=== PATIENT | male | born 1960 | race Caucasian/White ===

== ENCOUNTER 2023-09-07 01:43 | Day surgery (SDC) | payer OTHER, SELFPAY ==
[2023-08-23 14:57] VITALS: BMI 29.0
[2023-09-07 06:53] VITALS: BP 144/80; PULSE 64; RESP 18; TEMP 36.1; O2SAT 99
[2023-09-07] MEDS: LACTATED RINGERS 1,000 ML 150 ML IV CONT (07:02)
--- NOTE | 2023-09-07 07:48 | PM.HPGS ---
History of Present Illness History of Present Illness Consent: Risks, benefits, and alternatives have been discussed and questions answered. Patient agrees to proceed with procedure. Chief complaint: hx colon polyps Narrative: Jay Jay Jackson is a 63 year old male with colon polyp 5 years ago Review of Systems Review of Systems: All systems reviewed & are unremarkable except as noted in HPI and below PMFSH Past Medical History Medical History (Updated 09/07/23 @ 07:52 by Altaf Landers MD) Colon polyp Family History Family History (Updated 09/27/15 @ 11:40 by DOCTOR UNKNOWN) Father Hypertension Family history of heart disease in male family member before age 55 Grandparent Cerebrovascular accident Family history of emphysema Mother Cerebrovascular accident Other Family history of arthritis Family history of chronic obstructive pulmonary disease Family history of mental disorder Social History Social History Smoking packs per day: 1 Smoking cigarettes per day: 20.0 Years smoked: 20 Smoking pack-years: 20.00 Smoking status: Former smoker Tobacco type: cigarettes Alcohol intake: current Drinks per week: 12 Alcohol use details: BEERS Substance use: never Substance use type: does not use Living arrangements: with family Spiritual care concerns: No Meds Home Medications and Allergies Home Medications Medication Instructions Recorded Confirmed Type Jessika-Coline 600 mg PO DAILY 08/23/23 08/23/23 History amlodipine 10 mg tablet 10 mg PO DAILY 08/23/23 08/23/23 History atorvastatin 40 mg tablet 40 mg PO DAILY 08/23/23 08/23/23 History etanercept 50 mg/mL (1 mL) 50 mg subcut WEEKLY 08/23/23 08/23/23 History subcutaneous syringe (Enbrel) lisinopril 40 mg tablet 40 mg PO DAILY 08/23/23 08/23/23 History multivit with minerals-iron 18 1 tablet PO DAILY 08/23/23 08/23/23 History mg-folic ac 400 mcg-vit K 25 mcg tablet (Adults Multivitamin) sildenafil 100 mg tablet 100 mg PO DIRECTED PRN Sexual 08/23/23 08/23/23 History Activity Allergies Allergy/AdvReac Type Severity Reaction Status Date / Time No Known Allergies Allergy Unknown Verified 09/07/23 06:52 Vital Signs Vital Signs - 24 hr 09/07/23 06:53 Temperature 97 F L Pulse Rate 64 Respiratory Rate 18 Blood Pressure 144/80 H Pulse Oximetry 99 Oxygen Delivery Room Air Exam Const: General: comfortable and no acute distress HENMT: Face/Nose/Sinus: Normal nares present Eyes: General: appearance normal, both eyes and all related structures Neck: Neck: no JVD Resp: Auscultation: clear to auscultation bilaterally Cardio: Rate: regular rate Rhythm: regular rhythm GI: Inspection: non-distended GI Palp: Yes Soft to palpation Skin: General skin exam: normal color Neuro: General: gait normal Speech: normal speech Extrem: General: normal to inspection Psych: Mental Status: mental status grossly normal Assessment and Plan Assessment and plan (1) Colon polyp: Code(s): K63.5 - Polyp of colon Status: Acute Assessment and Plan: colonoscopy
--- NOTE | 2023-09-07 07:53 | WPDANESEPPF ---
Anes - Initial Pre Proc Eval Procedure: Operation Date: 09/07/23 08:00 Proposed Procedures p Screening Colonoscopy - Altaf Landers MD Date/Time: 09/07/23 07:53 Surgeon: Altaf Landers MD Pre Op Diagnosis: hx colon polyps Patient Data Age: 63 Gender: M Height: 1.83 m Weight: 92.9 kg Last Vital Signs Temp 97 F L 09/07/23 06:53 Pulse 64 09/07/23 06:53 Resp 18 09/07/23 06:53 BP 144/80 H 09/07/23 06:53 Pulse Ox 99 09/07/23 06:53 O2 Del Method Room Air 09/07/23 06:53 Allergies Allergy/AdvReac Type Severity Reaction Status Date / Time No Known Allergies Allergy Unknown Verified 09/07/23 06:52 Home Medications Medication Instructions Recorded Confirmed Type Jessika-Coline 600 mg PO DAILY 08/23/23 08/23/23 History amlodipine 10 mg tablet 10 mg PO DAILY 08/23/23 08/23/23 History atorvastatin 40 mg tablet 40 mg PO DAILY 08/23/23 08/23/23 History etanercept 50 mg/mL (1 mL) 50 mg subcut WEEKLY 08/23/23 08/23/23 History subcutaneous syringe (Enbrel) lisinopril 40 mg tablet 40 mg PO DAILY 08/23/23 08/23/23 History multivit with minerals-iron 18 1 tablet PO DAILY 08/23/23 08/23/23 History mg-folic ac 400 mcg-vit K 25 mcg tablet (Adults Multivitamin) sildenafil 100 mg tablet 100 mg PO DIRECTED PRN Sexual 08/23/23 08/23/23 History Activity Patient hx anesthesia problems: none Family hx anesthesia problems: none Results Review: All pre-operative results and documents have been reviewed as part of the pre-operative evaluation. [facility] Past Medical History Medical History (Updated 09/07/23 @ 07:52 by Altaf Landers MD) Colon polyp Family History Family History (Updated 09/27/15 @ 11:40 by DOCTOR UNKNOWN) Father Hypertension Family history of heart disease in male family member before age 55 Grandparent Cerebrovascular accident Family history of emphysema Mother Cerebrovascular accident Other Family history of arthritis Family history of chronic obstructive pulmonary disease Family history of mental disorder Social History Social History Smoking packs per day: 1 Smoking cigarettes per day: 20.0 Years smoked: 20 Smoking pack-years: 20.00 Smoking status: Former smoker Tobacco type: cigarettes Alcohol intake: current Drinks per week: 12 Alcohol use details: BEERS Substance use: never Substance use type: does not use Living arrangements: with family Spiritual care concerns: No Anes - Eval Final PreProcedure Day of Procedure 09/07/23 07:53 Patient weight: normal Heart: regular rate and rhythm Lungs: clear to auscultation Airway: Mallampati scale class II Neurological: alert and oriented Last oral intake: >/= 8 hours ASA classification: III Emergent: no Anesthetic plan: proceed Anesthesia type and monitoring: general GIVS and standard monitoring Results Review: All pre-operative results and documents have been reviewed as part of the pre-operative evaluation. Informed Consent: The patient's anesthetic plan and its attendant risks and benefits were discussed with the patient/family/POA. Questions were solicited and answers provided to the satisfaction of the patient/family/POA.
[2023-09-07 08:14] VITALS: BP 101/61; PULSE 50; RESP 18; O2SAT 98
[2023-09-07 08:24] VITALS: BP 103/62; PULSE 57; RESP 18; O2SAT 96
[2023-09-07 08:31] VITALS: BP 130/80; PULSE 50; RESP 18; O2SAT 100
== END 2023-09-07 08:50 | disposition home or self-care (01) ==
PROVIDERS: PCP Family Medicine; Visit Provider Internal Medicine Gastroenterology
PROC: 0DJD8ZZ Inspection of Lower Intestinal Tract, Via Natural or Artificial Opening Endoscopic (ICD-10-PCS; CPT 45378; principal; 2023-09-07 08:00)
DX: Z12.11 Encounter for screening for malignant neoplasm of colon (principal); D12.0 Benign neoplasm of cecum; D12.2 Benign neoplasm of ascending colon; K57.30 Diverticulosis of large intestine without perforation or abscess without bleeding; K64.8 Other hemorrhoids; Z79.620 Long term (current) use of immunosuppressive biologic; Z87.891 Personal history of nicotine dependence
CPT/HCPCS: 45385; 88305; J2704; J7120

== ENCOUNTER 2025-02-26 07:22 | Outpatient (CLI) | payer OTHER, SELFPAY ==
--- NOTE | ~2025-02-26 | PE_ITS ---
EXAMINATION: PET_PETPSMAST_PT DATE: 02/26/2025 10:44 INDICATION: Prostate cancer TECHNIQUE: 5.794 mCi of Illucix [id number]) was administered i.v. Low dose computed tomography (CT) images were acquired from the base of the brain to the base of the brain to the proximal thighs for attenuation correction and anatomic localization. Positron emission tomography (PET) images were acquired in the same distribution beginning 75 minutes after injection. Images including fused PET/CT images were reconstructed in axial, coronal, and sagittal planes. Automated exposure control technique was employed. The dose-length product was 1160.41mGy-cm. COMPARISON: None FINDINGS: Head/neck: Typical pattern of symmetric physiologic increased activity in the lacrimal, parotid and submandibular glands as well as along the mucosa of the nasal and oral cavities, pharynx and hypopharynx. No pathologically enlarged cervical lymphadenopathy or suspicious foci of increased uptake in the visualized head or neck. Prominent atherosclerotic calcifications at the bilateral carotid bulbs. Chest: Calcified nodules in the right lower lobe and calcified right hilar and mediastinal lymph nodes consistent with old granulomatous disease. No other suspicious pulmonary nodules, pneumonia, pulmonary edema or other pulmonary infiltrates. No pleural effusion. Heart size is normal. Atherosclerotic coronary artery calcifications unchanged prior median sternotomy and coronary artery bypass grafting. No pathologically enlarged or PSMA avid thoracic lymphadenopathy. Abdomen/pelvis/proximal thighs: Physiologic renal accumulation and excretion of activity in the kidneys, bladder and along portions of ureters. Prostatomegaly measuring 5.3 x 3.8 cm. Moderate- sized region of prominent increased uptake at the left side of the prostate with maximal SUV of 17.7 consistent with primary prostate cancer. Normal degree and slightly heterogenous pattern of increased uptake throughout the liver and spleen without radiologic correlate or dominant PSMA avid lesion. Multiple splenic calcifications and a few tiny hepatic calcifications consistent with old granulomatous disease. The gallbladder, pancreas and bilateral adrenal glands are normal. Moderate uptake scattered throughout the bowels with typical duode nal and proximal jejunal predominance and without radiologic correlate, also likely physiologic. Normal appendix. No other abnormal foci of increased uptake or pathologically enlarged lymphadenopathy in the abdomen, pelvis or proximal thighs. Musculoskeletal: A couple densely sclerotic likely bone islands at the right acetabulum and left sacral ala which remain without abnormal PSMA activity. There are 3 subcentimeter foci of mild increased bone activity, the most intense at the anterior left first rib with maximal SUV of 3.5, a second at the posterior left first rib with maximal SUV of 2.7 and finally a subtle lesion at the left lateral mass of C5 with maximal SUV of 1.9. All are without evident corresponding lytic or blastic bone lesion CT images. IMPRESSION: 1. Prostatomegaly with moderate-sized region of prominent increased activity at the left side of the prostate consistent with primary prostate cancer. 2. 3 small foci of mild increased bone activity at the anterior and posterior left first rib and at the left lateral masses of C5 which are all without Hologic correlate on CT, equivocal for early osseous metastatic disease. 2. No other suspicious PSMA avid lesions or enlarged lymphadenopathy to suggest metastatic disease in the neck, chest, abdomen or pelvis. Reviewed, dictated and finalized at location A. IMPRESSION: 1. Prostatomegaly with moderate-sized region of prominent increased activity at the left side of the prostate consistent with primary prostate cancer. 2. 3 small foci of mild increased bone activity at the anterior and posterior l eft first rib and at the left lateral masses of C5 which are all without Hologi c correlate on CT, equivocal for early osseous metastatic disease. 2. No other suspicious PSMA avid lesions or enlarged lymphadenopathy to suggest metastatic disease in the neck, chest, abdomen or pelvis.
--- OUTSIDE RECORDS SUMMARY | 2025-02-26 07:25 | XMS_ITS | Clinical Summary ---
Author Organization [address] Address [address] [place] [address] Care Team Providers Care First Assistant Name Role Phone Jose Herrera MD Primary Care Provider [phone] Allergies No known active allergies Medications etanercept (ENBREL) 50 mg/mL (0.98 mL) injection inject 1 milliliter by subcutaneous route every week 0 Syringe 0 6 Active metroNIDAZOLE (NORITRATE) 1 % cream Apply topically daily Active aspirin 81 mg enteric coated tablet Take 1 tablet (81 mg total) by mouth daily Active sildenafiL (VIAGRA) 100 mg tablet TAKE 1 TABLET BY MOUTH 1/2 TO 1 HOUR PRIOR TO INTERCOURSE NEEDED FOR ERECTILE DYSFUNCTION( MAY NOT USE WITH NITROGLYCERIN) 4 tablet 11 3 Active amLODIPine (NORVASC) 10 mg tablet TAKE 1 TABLET(10 MG) BY MOUTH DAILY 90 tablet 4 5 Active atorvastatin (LIPITOR) 40 mg tabletIndication s:Coronary artery disease involving mechoopda coronary artery of mechoopda heart without angina pectoris TAKE 1 TABLET(40 MG) BY MOUTH DAILY 90 tablet 3 5 Active lisinopriL (PRINIVIL,ZESTRI L) 40 mg tabletIndication s:Benign hypertension TAKE 1 TABLET(40 MG) BY MOUTH DAILY 90 tablet 3 5 Active Active Problems Problem Noted Date Diagnosed Date Bilateral impacted cerumen 10/26/2024 Assessment & Plan (10/26/2024 2:58 PM CDT): Canals cleared. RTC for any recurrent concerns. Prostate cancer screening 04/27/2024 Assessment & Plan (04/27/2024 3:19 PM RESEARCH TECH): PSA with next set of labs. Annual physical exam 10/21/2023 Assessment & Plan (10/26/2024 2:59 PM CDT): Visit preventive in nature. We reviewed medications, chronic conditions, risk factors, lifestyle recommendations. Reviewed immunization recommendations. Labs ordered. Follow-up in 6 months for chronic conditions and 1 year for annual wellness. Assessment & Plan (10/21/2023 2:49 PM CDT): In regard to health maintenance, Colonoscopy last month- polyps- repeat in 3 years PSA utd Shingrix vaccine declines Eat a healthy diet: focus on lean meats and proteins, more fruits, vegetables and whole grains and low in sugars and fats. Limit red meat and avoid processed meat. Maintain a healthy weight; avoid being overweight. Aim for a normal body mass index (BMI) of 18.5-24.9. Help learning to eat healthier, we can set up appointment with wildlife control agent/utility assembler. Have an active lifestyle, strive for 30 minutes of moderate exercise 5 times a week and strength or resistance training at least twice a week. Use broad-spectrum (UVA+UVB) sunscreen with SPF 30 or greater, is water resistant, limit time spent in the sun (10 am-4pm), wear hat, wear UV protective clothing, wear sunglasses. Never use a tanning bed. Skin that was irradiated may be more sensitive over your lifetime. Do not smoke or chew tobacco; participate in a smoking cessation program. Limit alcohol intake, 1 drink per day for a woman and 2 drinks per day for a man. History of colon polyps 06/29/2023 Assessment & Plan (10/21/2023 3:05 PM CDT): Continue following with GI specialist as directed. Assessment & Plan (06/29/2023 1:47 PM RESEARCH TECH): Referral placed to schedule colonoscopy. No significant sphincter laxity. Recommend tsp of Metamucil daily. Will have him follow-up with GI. Red flags reviewed. Other male erectile dysfunction 06/29/2023 Assessment & Plan (06/29/2023 1:48 PM RESEARCH TECH): Continue with sildenafil p.r.n.. Also [facility]. He is agreeable with plan and states understanding. Poison micki 11/20/2022 Assessment & Plan (11/20/2022 12:06 PM CDT): Rash is not wide spread or particularly bothersome. Instructed to avoid hot shower, scratching and recommended use of topical hydrocortisone cream. Follow up if no improvement in the next 2 weeks or sooner for any new or worsening symptoms. BMI 28.0-28.9,adult 11/20/2022 Assessment & Plan (10/26/2024 3:00 PM CDT): Weight is stable. Assessment & Plan (06/29/2023 1:46 PM RESEARCH TECH): Reviewed healthy diet. Assessment & Plan (11/20/2022 11:56 AM CDT): Discussed healthy diet and importance of regular physical activity. Physical exam, annual 11/20/2022 Assessment & Plan (11/20/2022 12:09 PM CDT): Preventive exam; reviewed recommended preventive screenings and vaccinations. Encourage annual flu vaccine. Wear sunscreen/protective clothing when outdoors. -up to date on screening c-scope Mixed hyperlipidemia 01/09/2022 Assessment & Plan (10/26/2024 3:00 PM CDT): Compliant with atorvastatin. Tolerating without side effects. Lipid panel ordered. Will plan accordingly once results are received. Assessment & Plan (04/27/2024 2:58 PM RESEARCH TECH): Labs look good. Continue taking atorvastatin. Red flags reviewed. Assessment & Plan (04/22/2023 4:07 PM RESEARCH TECH): Controlled. Tolerating statin without side effects. Will continue to monitor. Unresponsive episode 05/04/2017 Bradycardia 05/04/2017 Psoriasis 05/06/2016 Overview (08/28/2016): Psoriasis History of coronary artery bypass surgery 2015 Overview (08/28/2016): S/P CABG x 2 Coronary artery disease invo lving mechoopda coronary artery of mechoopda heart without angina pectoris 04/10/2016 Overview (08/28/2016): Coronary artery disease involving mechoopda coronary artery of mechoopda heart without angina pectoris Assessment & Plan (10/26/2024 2:59 PM CDT): No chest pain. Compliant with medication regimen. Continues following with Cardiology. Assessment & Plan (04/27/2024 3:18 PM RESEARCH TECH): Denies chest pain. Continue following with cardiology. Compliant with medication regimen. Red flags reviewed. Assessment & Plan (10/21/2023 3:05 PM CDT): Denies chest pain. Will continue with secondary prevention. Red flags reviewed. Assessment & Plan (04/22/2023 4:07 PM RESEARCH TECH): Denies chest pain. Blood pressure is above goal. Will uptitrate amlodipine to 10 mg daily. Will monitor response. Assessment & Plan (11/20/2022 12:04 PM CDT): Labs ordered. Continue secondary prevention, taking atorvastatin 40 mg daily and aspirin as prescribed. Following with Cardiology. Benign hypertension 01/14/2016 Overview (08/28/2016): HTN (hypertension), benign Assessment & Plan (10/26/2024 2:59 PM CDT): Well controlled on amlodipine, lisinopril. Will continue. Assessment & Plan (04/27/2024 2:57 PM RESEARCH TECH): Normotensive. Continue taking amlodipine and lisinopril. Red flags reviewed. Assessment & Plan (06/29/2023 1:46 PM RESEARCH TECH): Controlled on amlodipine, lisinopril. No changes. Will continue to monitor. Assessment & Plan (04/22/2023 4:08 PM RESEARCH TECH): Uncontrolled. Will uptitrate amlodipine to 10 mg daily. Encouraged to monitor blood pressure at home. Reviewed heart healthy diet and lifestyle recommendations. Will continue to monitor. Red flags reviewed. Assessment & Plan (11/20/2022 12:07 PM CDT): BP elevated, patient took BP medication about 1 hour ago. Instructed him to re- check BP in about 2 hours, if >130 instructed to take additional amlodipine. Continue periodically monitoring at home. Tobacco dependence in remission 01/14/2016 Overview (08/28/2016): Tobacco abuse, in remission Abnormal cardiovascular stress test 01/14/2016 Overview (08/28/2016): Abnormal stress ECG with treadmill Chest pain 01/14/2016 Overview (08/28/2016): Chest pain in adult Resolved Problems Problem Noted Date Diagnosed Date Resolved Date Hypertension 05/06/2016 06/18/2020 Overview (08/28/2016): Hypertension Chronic coronary artery disease 02/11/2016 01/09/2022 Dyslipidemia 01/14/2016 01/09/2022 Overview (08/28/2016): Dyslipidemia Encounters Date Type Department Care Team Description 12/08/2024 2:00 PM CDT Office Visit [facility] Card[facility] [address] [place] [address] Popeye Restrepo MD Coronary artery disease involving mechoopda coronary artery of mechoopda heart without angina pectoris (Primary Dx); Mixed hyperlipidemia; BMI 28.0-28.9,adult; Benign hypertension; Tobacco dependence in remission from Last 3 Months Immunizations Immunization Administration Dates Next Due Influenza, Unspecified 04/27/2024(Deferr ed: Patient Refused),04/22/2023(Deferred: Patient Refused),08/21/2022(Deferred: Patient Refused),08/19/2021(Deferred: Patient Refused),02/21/2021(Deferred: Patient Refused),02/21/2021(Deferred: Patient Refused),02/22/2020(Deferred: Patient Refused),08/09/2018(Deferred: Patient Refused) Pfizer SARS-CoV-2 Monovalent Vaccination (12+ Yrs) PURPLE 08/13/2020,07/23/2020 Pneumococcal Conjugate Pcv20 10/26/2024(Deferred : Patient Refused) Surgical History Surgery Date Site/Laterality Comments OTHER SURGICAL HISTORY Double bypass CORONARY ARTERY BYPASS GRAFT 03/13/2016 CABG x2, [facility] Medical History Medical History Date Comments Hypertension Hypertension Coronary artery disease S/P CABG (coronary artery bypass graft) PAD (peripheral artery disease) Family History Medical History Relation Name Comments Hypertension Brother Hypertension; Heart failure Father Congestive hea rt failure; Hypertension Father Hypertension; Hypertension Mother Hypertension; Other Mother Alive and well; /High blood sugar; Stroke Mother Stroke; Relation Name Status Comments Brother Father (Age 66) Mother Alive Social History Tobacco Use Types Packs/Day Years Used Date Smoking Tobacco: Former Cigarettes Smokeless Tobacco: Never Tobacco Cessation:Counseling Given: Not Answered Alcohol Use Standard Drinks/Week Comments Yes 0 (1 standard drink = 0.6 oz pur e alcohol) AUDIT-C Answer Date Recorded Q1: How often do you have a drink containing alc ohol? 2-3 times a week 06/29/2023 Q2: How many drinks containi ng alcohol do you have on a typical day when you are drinking? 3 or 4 06/29/2023 Q3: How often do you have si x or more drinks on one occasion? Less than monthly 06/29/2023 PHQ-2 Answer Date Recorded PHQ-2 Total Score (If total score is 3 or more points, staff should administer the PHQ-9) 0 10/26/2024 Sex and Gender Information Value Date Recorded Sex Assigned at Not on file Legal Sex Male 4:09 AM RESEARCH TECH Gender Identity Not on file Sexual Orientation Not on file Obstetrics History Last Filed Vital Signs Vital Sign Reading Time Taken Comments Blood Pressure 122/72 12/08/2024 2:10 PM CDT Pulse 62 12/08/2024 2:10 PM CDT Temperature 36.7 C (98.1 F) 10/26/2024 2:16 PM CDT Respiratory Rate 20 10/26/2024 2:16 PM CDT Oxygen Saturation 96% 12/08/2024 2:10 PM CDT Inhaled Oxygen Concentration - - Weight 95.3 kg (210 lb) 12/08/2024 2:10 PM CDT Height 182.9 cm (6') 12/08/2024 2:10 PM CDT Body Mass Index 28.48 12/08/2024 2:10 PM CDT Plan of Treatment Health Maintenance Due Date Last Done Comments DTaP/Tdap/Td Vaccine (1 - Tdap) 1970 Pneumococcal vaccine 65+ (1 of 1 - PCV) 2009 Zoster Vaccine (1 of 2) 2009 Covid-19 Vaccine (3 - Pfizer risk series) 09/10/2020 08/13/2020, 07/23/2020 Abdominal Aortic Aneurysm (A AA) Screen 2024 Influenza Vaccine (#1) 2025 Depression Screening 10/26/2025 10/26/2024, 10/21/2023, 04/22/2023, Additional history exists Fall Risk Assessment 10/26/2025 10/26/2024, 07/04/2021, 08/09/2018 Well Visit 65+ 10/26/2025 10/26/2024, 09/23, 11/20/2022, Additional history exists Prostate Cancer Screening-PSA 11/03/2026, 10/19/2023, 07/25/2021, Additional history exists Colon Cancer Screening-Colonoscopy 09/06/2033 09/07/2023, 09/14/2018, 05/24/2009 Hepatitis C Screening Completed 07/25/2021 Colon Cancer Screening-CT Colonography Discontinued 09/07/2023, 09/14/2018, 05/24/2009 Colon Cancer Screening-DNA Stool Discontinued 09/07/2023, 09/14/2018, 05/24/2009 Colon Cancer Screening-FIT Discontinued 09/06, 09/14/2018, 05/24/2009 Colon Cancer Screening-Sigmoidoscopy Discontinued 09/07/2023, 09/14/2018, 05/24/2009 Hepatitis B Screening Completed 11/03/2024 Procedures Procedure Name Priority Date/Time Associated Diagnosis Comments PSA SCREEN Routine 11/03/2024 2:11 PM CDT Prostate cancer screening COLONOSCOPY REPORT Routine 09/07/2023 HEPATITIS C ANTIBODY Routine 07/25/2021 10:36 AM RESEARCH TECH from Last 3 Months or Most Recently Relevant to Health Maintenance Results * (ABNORMAL) PSA screen (11/03/2024 2:11 PM CDT) PSA-Total 6.28(H) <=5.40 ng/mL Comment: Interpretive Data AGE SEX REFERENCE INTERVAL 0 minutes-150 years Female None 0 minutes-49 years Male None 50-59 years Male 0-3.90 60-69 years Male 0-5.40 70-79 years Male 0-6.20 80-150 years Male 0-6.20 The Jennifer PSA Total assay procedure was used. Results from different manufacturers or methods may not be comparable. Serial testing should be performed using the same method. Current interpretive data last revised 21. Testing performed by: [facility], [address] [place] [address]., [id number] Blood 11/03/2024 2:11 PM CDT 11/03/2024 8:30 PM CDT us iLsa Rangel HIDE OR SKIN BUFFER LAB BLOOD ORDERABLES Final Result [facility]) [address] [facility] [place] [address] * Colonoscopy Report -[facility] (09/07/2023) Anatomical Region Laterality Modality Other Historical Provider GI PROCEDURE ORDERABLES F inal Result * Hepatitis C antibody (07/25/2021 10:36 AM RESEARCH TECH) Hep C Ab <0.1 0.0 - 0.9 s/co ratio [facility] - 01 Comment: Negative: < 0.8 Indeterminate: 0.8 - 0.9 Positive: > 0.9 The CDC recommends that a positive HCV antibody result be followed up with a HCV Nucleic Acid Amplification test ([id number]). 07/25/2021 10:3 6 AM RESEARCH TECH 07/25/2021 Narrative [facility] - 07/26/2021 8:11 AM RESEARCH TECH Performed at: 01 - [facility] [address] [id number] Matcher: Vishnu Christopher PhD, Phone: [phone] Lisa Rangel NP LAB MICROBIOLOGY - GENERAL ORDERABLES Final Result Performing Organization Address City/State/RUST Co de Phone Number [facility] - 01 from Last 3 Months or Most Recently Relevant to Health Maintenance Insurance [facility] [employer] [facility] [employer]/PPO Address: [facility] [address] [place] [address] [facility] [employer] [facility] [employer] Address: [facility] [id number] [place] [id number] Care Teams First Assistant Relationship Specialty Start Date End Date [place] [address] PCP - General Family Medicine 12/30/16
--- OUTSIDE RECORDS SUMMARY | 2025-02-26 07:25 | XMS_ITS | Clinical Summary ---
Author Organization [facility] Address [address] [place] [address] Phone Care Team Providers Care Book Solicitor Name Role Phone Nomfc, External Provider Primary Care Provider U navailable Allergies No known active allergies Medications aspirin (ECOTRIN EC) 81 mg Tablet, Delayed Release (E.C.) 12/23/2015 Active amLODIPine (NORVASC) 10 mg tablet 12/23/2015 Active TESTIM 50 mg/5 gram (1 %) Gel transdermal gel 01/15/2016 Act navdeep ENBREL 50 mg/mL (0.98 mL) Syringe 02/04/2016 A ctive hydroCHLOROthiazide 25 mg tablet 02/05/2016 Active lisinopril (PRINIVIL) 20 mg tablet 12/23/2015 Active atorvastatin (LIPITOR) 40 mg tablet 12/23/2015 Active VIAGRA 50 mg tablet 02/15/2016 Active Active Problems No known active problems Social History Tobacco Use Types Packs/Day Years Used Date Smoking Tobacco: Former Cigarettes Q uit: 01/22/2015 Smokeless Tobacco: Never Alcohol Use Standard Drinks/Week Comments Yes 0 (1 standard drink = 0.6 oz pur e alcohol) socially Sex and Gender Information Value Date Recorded Sex Assigned at Not on file Legal Sex Male 9:03 AM CDT Gender Identity Not on file Sexual Orientation Not on file Last Filed Vital Signs Vital Sign Reading Time Taken Comments Blood Pressure 126/92 02/26/2016 1:32 PM CDT Pulse 64 02/26/2016 1:32 PM CDT Temperature - - Respiratory Rate - - Oxygen Saturation 99% 02/26/2016 1:32 PM CDT Inhaled Oxygen Concentration - - Weight 94.8 kg (209 lb) 02/26/2016 1:32 PM CDT Height 182.9 cm (6') 02/26/2016 1:32 PM CDT Body Mass Index 28.35 02/26/2016 1:32 PM CDT Plan of Treatment Health Maintenance Due Date Last Done Comments DTAP/TDAP/TD VACCINES (1 - Tdap) 1978 COLORECTAL SCREENING 2004 Colorectal Cancer Screening 2004 FIT-DNA Q 3 years 2004 FIT/FOBT Q 1 year 2004 Flex Sig/CT Colonography Q 5 years 2004 PNEUMOCOCCAL VACCINE 50+ YEARS (1 of 1 - PCV) 05/07/20 09 ZOSTER VACCINE (1 of 2) 2009 INFLUENZA VACCINE (#1) 2024 RSV VACCINE (60+ or ) (1 - 1-dose 75+ series) 2034 Insurance [facility] [employer] PPO [id number] Care Teams Book Solicitor Relationship Specialty Start Date End Date Nomfc, External Provider PCP - General 02/24/16
== END 2025-02-26 07:23 | disposition home or self-care (01) ==
PROVIDERS: PCP Family Medicine; Visit Provider Urology
DX: C61 Malignant neoplasm of prostate (principal)
CPT/HCPCS: 78815; A9596